=== PATIENT | female | born 1970 | race Caucasian/White ===

== ENCOUNTER 2020-03-06 18:23 | Inpatient (IN) | payer OTHER ==
[~2020-03-06] VITALS: Ht 165.1 cm; Wt 72.6 kg
[~2020-03-06 18:23] MED LIST: ACETAMINOPHEN325 MG PO; ASPIR-LOW81 MG PO; ASPIRIN EC81 MG PO; BUMEX 1MG TABLET1 MG PO; COLACE100 MG PO; COLESTIPOL HCL1 GM PO; CYMBALTA20 MG PO; DIGOXIN250 MCG PO; DOC-Q-LACE100 MG PO; DULCOLAX10 MG PR; FERROUS GLUCON324 M1 PO; FLONASE 0.05% N16 GM; FLOVENT DISKUS50 MCG INH; FUROSEMIDE40 MG PO; GABAPENTIN800 MG PO; HABITROL 21 MG P1 EA TD; HYDRALAZINE HCL10 MG PO; HYDROXYZINE HCL25 MG PO; KLONOPIN TAB 00.5 MG PO; KLOR-CON M2020 MEQ PO; KLOR-CON20 MEQ PO; LACTULOSE10 GM/15 M PO; LASIX 40 MG TAB40 MG PO; LASIX20 MG PO; LEVAQUIN500 MG PO; LIBRIUM CAP 1010 MG PO; LISINOPRIL2.5 MG PO; LISINOPRIL5 MG PO; LOPRESSOR 25 MG25 MG PO; LORTAB 5-325 M1 EACH PO; MILK OF MA400 MG/5 M PO; MIRALAX17 GM PO; NEURONTIN 300300 MG PO; NICOTINE PATCH1 EAC5 TOP; NITROSTAT 0.40.4 MG SL; NITROSTAT0.4 MG SL; NORCO 7.5-3251 EACH PO; OXACILLIN SODIUM IV; PHENERGAN 25 MG25 M1 PO; POLYETHYLENE GLY1 GM MC; PROTONIX 40 MG40 M1 PO; RIFAMPIN300 MG PO; ROPINIROLE HCL1 MG PO; SYNTHROID25 MCG PO; SYNTHROID50 MCG PO; TRAZODONE HCL50 MG PO; TYLENOL 325MG325 MG PO; VENTOLIN/PROVE0.5 ML INH; ZESTRIL2.5 MG PO
[2020-03-06 21:02] LABS: HEMOGLOBIN 9.2 gm/dl (12.3-15.3); RED BLOOD COUNT 3.31 M/UL (4.00-5.10); WHITE BLOOD COUNT 8.3 K/UL (4.5-11.0)
[2020-03-06 21:28] LABS: BUN/CREATININE RATIO 16 (0-10)
[2020-03-07] MEDS ORDERED: ROPINIROLE HCL1 MG PO (01:58)
[2020-03-07] MEDS ORDERED: PLAVIX 75 MG TA75 MG PO (01:59)
[2020-03-07] MEDS ORDERED: PLAVIX75 MG PO (02:00)
[2020-03-07] MEDS ORDERED: LAMICTAL100 MG PO (04:39)
[2020-03-07] MEDS ORDERED: CYMBALTA30 MG PO (09:11)
[2020-03-07] MEDS ORDERED: LEVOTHYROXINE75 MCG PO (09:16)
[2020-03-07] MEDS ORDERED: METOPROLOL SUCC50 MG PO (09:17)
[2020-03-07] MEDS ORDERED: PROTONIX40 MG PO (09:20)
[2020-03-07] MEDS ORDERED: CARAFATE 1 GM TA1 GM PO (09:23)
[2020-03-07] MEDS ORDERED: CYANOCOBAL1000 MCG/1 IM (10:26)
[2020-03-07] MEDS ORDERED: DOXEPIN HCL10 MG PO (10:27)
[2020-03-07] MEDS ORDERED: FAMOTIDINE20 MG PO (10:28)
[2020-03-07] MEDS ORDERED: LIDOCAINE1 EAC1 TP (10:31)
[2020-03-09 06:23] LABS: HEMOGLOBIN 9.3 gm/dl (12.3-15.3); RED BLOOD COUNT 3.33 M/UL (4.00-5.10); WHITE BLOOD COUNT 9.2 K/UL (4.5-11.0)
[2020-03-09 07:00] LABS: BUN/CREATININE RATIO 17 (0-10)
[2020-03-09] MEDS ORDERED: AUGMENTIN 875-1 EACH PO (15:03)
[2020-03-09] MEDS ORDERED: ROBITUSSIN DM UD5 ML PO (15:07)
== END 2020-03-09 16:53 | disposition home or self-care (01) | DRG 195 ==
LOC: ER1 18:23 → MED SURG 4 22:14 → CDU 22:14 → MED SURG 4 03-07 17:44
PROVIDERS: Internal Medicine Infectious Disease; Physician Assistant; ADMIT Internal Medicine
DX: J18.8 Other pneumonia, unspecified organism (principal); J44.9 Chronic obstructive pulmonary disease, unspecified; Z79.899 Other long term (current) drug therapy; F41.9 Anxiety disorder, unspecified; F10.10 Alcohol abuse, uncomplicated; E03.9 Hypothyroidism, unspecified; F17.210 Nicotine dependence, cigarettes, uncomplicated; Z86.19 Personal history of other infectious and parasitic diseases; Z90.49 Acquired absence of other specified parts of digestive tract; R59.9 Enlarged lymph nodes, unspecified; J98.4 Other disorders of lung
CPT/HCPCS: ECHO; 36415; 71045; 71046; 80053; 80202; 80307; 81001; 82550; 82553; 83605; 83874; 83880; 84484; 84703; 85025; 86140; 87040; 87081; 87086; 93005; 93306; 94640; 94760; 96365; 96366; 96368; 96375; 96376; 99285; G0378; J0696; J2405; J2543; J3370; J7070; Q9967; U0002

== ENCOUNTER → 2020-07-17 | Outpatient (CLI) | payer OTHER ==
[~2020-07-17] MED LIST changes: +AUGMENTIN 875-1 EACH PO; +CARAFATE 1 GM TA1 GM PO; +CYANOCOBAL1000 MCG/1 IM; +CYMBALTA30 MG PO; +DOXEPIN HCL10 MG PO; +FAMOTIDINE20 MG PO; +LAMICTAL100 MG PO; +LEVOTHYROXINE75 MCG PO; +LIDOCAINE1 EAC1 TP; +METOPROLOL SUCC50 MG PO; +PLAVIX 75 MG TA75 MG PO; +PLAVIX75 MG PO; +PROTONIX40 MG PO; +ROBITUSSIN DM UD5 ML PO
== END ==
LOC: KOH-I 16:00
DX: R06.02 Shortness of breath (principal); R91.8 Other nonspecific abnormal finding of lung field
CPT/HCPCS: 71250